=== PATIENT | male | born 1975 | race Caucasian/White ===

== ENCOUNTER 2016-10-04 18:17 | Emergency (ER) | payer OTHER ==
[2016-10-04] MEDS ORDERED: TYLENOL PO ONE (18:54)
--- NOTE | 2016-10-04 19:27 | XRay Report ---
FINAL REPORT PROCEDURE: XR CHEST 1V AP TECHNIQUE: Chest radiograph anteroposterior view. CPT 25245 HISTORY: upper respiratory infection COMPARISON: No prior studies are available for comparison. FINDINGS: The heart is normal in size. There is no focal infiltrate, pneumothorax or pleural effusion. Increased perihilar markings are seen that may be due to bronchitis. IMPRESSION: Increased perihilar markings are seen that may be due to bronchitis.
[2016-10-04] MEDS ORDERED: XYLOCAINE 1% MPF 5 mL INFILTRATI ONE (21:29)
[2016-10-04] MEDS ORDERED: ROCEPHIN IM ONE (21:29)
[2016-10-04] MEDS ORDERED: DECADRON IM ONE (21:29)
[2016-10-04 21:39] VITALS: BP 116/76
--- NOTE | 2016-10-04 21:53 | Emergency Department Report ---
- General Chief Complaint: Upper Respiratory Infection Stated Complaint: FEVER/BODY ACHES/DIZZINESS/COUGH Time Seen by Provider: 10/04/16 21:13 Source: patient Mode of arrival: Ambulatory Limitations: No Limitations - History of Present Illness Initial Comments: Patient comes into the ER today with complaints of generalized body aches, cough , sore throat that started yesterday. Patient denies any abdominal pain, diarrhea, vomiting. Patient states that his throat hurts and he coughs or even when he swallows. Patient denies any ear pain, nasal congestion. MD Complaint: fever, cough, sore throat - Related Data Previous Rx's Medication Instructions Recorded Last Taken Type HYDROcodone/APAP 10-325 [[place] 1 each PO Q6HR PRN #20 tablet 11/29/13 Unknown Rx 10-325 mg TAB] Amoxicillin 1,000 mg PO BID #40 capsule 10/04/16 Unknown Rx Allergies Allergy/AdvReac Type Severity Reaction Status Date / Time No Known Allergies Allergy Verified 10/04/16 18:53 ED Review of Systems ROS: Stated complaint: FEVER/BODY ACHES/DIZZINESS/COUGH Other details as noted in HPI Constitutional: chills, fever Eyes: denies: eye pain, eye discharge, vision change ENT: throat pain. denies: ear pain, dental pain, hearing loss, epistaxis, congestion Respiratory: cough. denies: shortness of breath, wheezing Cardiovascular: denies: chest pain, palpitations Endocrine: no symptoms reported Gastrointestinal: denies: abdominal pain, nausea, diarrhea Genitourinary: denies: urgency, dysuria Musculoskeletal: myalgia. denies: back pain, joint swelling, arthralgia Skin: denies: rash, lesions Neurological: denies: headache, weakness, paresthesias Psychiatric: denies: anxiety, depression Hematological/Lymphatic: denies: easy bleeding, easy bruising ED Past Medical Hx - Past Medical History Previous Medical History?: No - Surgical History Past Surgical History?: No Additional Surgical History: right knee surgery about 8 years ago - Social History Smoking Status: Never Smoker Substance Use Type: None - Medications Home Medications: Home Medications Medication Instructions Recorded Confirmed Last Taken Type HYDROcodone/APAP 10-325 [[place] 1 each PO Q6HR PRN #20 tablet 11/29/13 Unknown Rx 10-325 mg TAB] Amoxicillin 1,000 mg PO BID #40 capsule 10/04/16 Unknown Rx ED Physical Exam - General Limitations: No Limitations General appearance: alert, in no apparent distress - Head Head exam: Present: atraumatic, normocephalic - Eye Eye exam: Present: normal appearance, PERRL, EOMI Pupils: Present: normal accommodation - ENT ENT exam: Present: mucous membranes moist, TM's normal bilaterally, normal external ear exam, other (bilateral tonsillar erythematous with exudates) - Neck Neck exam: Present: normal inspection, full ROM, lymphadenopathy (bilateral tonsillar). Absent: tenderness - Respiratory Respiratory exam: Present: normal lung sounds bilaterally, rhonchi. Absent: respiratory distress, wheezes, decreased breath sounds - Cardiovascular Cardiovascular Exam: Present: regular rate, normal rhythm, normal heart sounds. Absent: systolic murmur, diastolic murmur, rubs, gallop - GI/Abdominal GI/Abdominal exam: Present: soft, normal bowel sounds. Absent: distended, tenderness - Rectal Rectal exam: Present: deferred - Extremities Exam Extremities exam: Present: normal inspection - Back Exam Back exam: Present: normal inspection - Neurological Exam Neurological exam: Present: alert, oriented X3 - Psychiatric Psychiatric exam: Present: normal affect, normal mood - Skin Skin exam: Present: warm, dry, intact, normal color. Absent: rash ED Course Vital Signs 10/04/16 10/04/16 18:43 21:36 Temperature 101.3 F H 99.4 F Pulse Rate 119 H 106 H Respiratory 20 18 Rate Blood Pressure 134/85 Blood Pressure 134/85 116/76 [Left] O2 Sat by Pulse 98 97 Oximetry ED Medical Decision Making - Radiology Data Radiology results: report reviewed Chest x-ray: Increased bronchial markings suggestive of bronchitis. No obvious infiltrates noted. - Medical Decision Making Patient is nontoxic and hemodynamically stable. Upon triage, patient checked in with reported fever as well as being tachycardic. Heart rate improved after controlling temperature with Tylenol here in the ER. Patient was given Rocephin 1 g IM as well as Decadron 10 mg IM to expedite recovery time. I will continue patient on outpatient antibiotic accordingly. Patient is in agreement treatment plan patient is stable for discharge. Critical care attestation.: If time is entered above; I have spent that time in minutes in the direct care of this critically ill patient, excluding procedure time. ED Disposition Clinical Impression: Exudative pharyngitis, Bronchitis, Fever Disposition: - TO HOME OR SELFCARE Is pt being admited?: No Does the pt Need Aspirin: No Condition: Good Instructions: Acute Bronchitis (ED), Strep Throat (ED), Fever in Adults (ED) Prescriptions: Amoxicillin 1,000 mg PO BID #40 capsule Referrals: PRIMARY CARE, [Primary Care Provider] - 3-5 Days Forms: Work/School Release Form(ED) Time of Disposition: 21:53 Print Language: TAMAZIGHT
== END 2016-10-04 22:08 | disposition home or self-care (01) ==
LOC: ED 18:17
DX: J40 Bronchitis, not specified as acute or chronic (principal)
CPT/HCPCS: 71010; 96372; 99283; J0696; J1100

== ENCOUNTER 2016-12-18 08:54 | Emergency (ER) | payer OTHER ==
[2016-12-18 09:05] VITALS: BP 124/77
--- NOTE | 2016-12-18 13:13 | Emergency Department Report ---
ED General Adult HPI - General Chief complaint: Sore Throat Stated complaint: FEVER,SORE THROAT Time Seen by Provider: 12/18/16 12:41 Source: patient Mode of arrival: Ambulatory Limitations: Language Barrier - History of Present Illness Initial comments: pt is a 41 y/o male who presents for sore throat, sinus congestion with fever x 2 days preceding URI , pt state sinus congestion causes dizziness intermittent that is relieved and exacerbated by position, there is no cp no sob, no weakness. there are no children in home or other sick contacts. Onset/Timin -: days(s) Location: head (head congestion with sore throat) Severity scale (0 -10): 5 Quality: burning, sharp Consistency: intermittent Improves with: none Worsens with: other (swallowing,lying down) Associated Symptoms: cough, fever/chills, malaise. denies: confusion, chest pain, diaphoresis, headaches, loss of appetite, nausea/vomiting, rash, seizure, shortness of breath, syncope, weakness Treatments Prior to Arrival: none - Related Data Previous Rx's Medication Instructions Recorded Last Taken Type HYDROcodone/APAP 10-325 [[address] 1 each PO Q6HR PRN #20 tablet 11/29/13 Unknown Rx 10-325 mg TAB] Amoxicillin 1,000 mg PO BID #40 capsule 10/04/16 Unknown Rx Amoxicillin/K Clav Tab [Augmentin 1 tab PO Q12HR #20 tab 12/18/16 Unknown Rx 875 mg] Cetirizine HCl [ZyrTEC] 10 mg PO DAILY #30 bag 12/18/16 Unknown Rx Ibuprofen [Motrin 800 MG tab] 800 mg PO Q8HR PRN #30 tablet 12/18/16 Unknown Rx Oxymetazoline 0.05% [Afrin] 1 spray NS BID #1 bottle 12/18/16 Unknown Rx Allergies Allergy/AdvReac Type Severity Reaction Status Date / Time No Known Allergies Allergy Verified 12/18/16 09:05 ED Review of Systems ROS: Stated complaint: FEVER,SORE THROAT Other details as noted in HPI Constitutional: chills, fever, malaise Eyes: denies: eye pain, eye discharge, vision change ENT: ear pain, throat pain, congestion Respiratory: cough. denies: shortness of breath, SOB with exertion, wheezing Cardiovascular: denies: chest pain, palpitations Endocrine: no symptoms reported Gastrointestinal: denies: abdominal pain, nausea, diarrhea Genitourinary: denies: urgency, dysuria Musculoskeletal: denies: back pain, joint swelling, arthralgia Skin: denies: rash, lesions Neurological: denies: headache, weakness, numbness, paresthesias, confusion, abnormal gait, vertigo Psychiatric: denies: anxiety, depression Hematological/Lymphatic: denies: easy bleeding, easy bruising ED Past Medical Hx - Past Medical History Previous Medical History?: No - Surgical History Past Surgical History?: Yes Additional Surgical History: right knee surgery about 8 years ago - Social History Smoking Status: Never Smoker Substance Use Type: Alcohol - Medications Home Medications: Home Medications Medication Instructions Recorded Confirmed Last Taken Type HYDROcodone/APAP 10-325 [[address] 1 each PO Q6HR PRN #20 tablet 11/29/13 Unknown Rx 10-325 mg TAB] Amoxicillin 1,000 mg PO BID #40 capsule 10/04/16 Unknown Rx Amoxicillin/K Clav Tab [Augmentin 1 tab PO Q12HR #20 tab 12/18/16 Unknown Rx 875 mg] Cetirizine HCl [ZyrTEC] 10 mg PO DAILY #30 bag 12/18/16 Unknown Rx Ibuprofen [Motrin 800 MG tab] 800 mg PO Q8HR PRN #30 tablet 12/18/16 Unknown Rx Oxymetazoline 0.05% [Afrin] 1 spray NS BID #1 bottle 12/18/16 Unknown Rx ED Physical Exam - General Limitations: Language Barrier General appearance: alert, in no apparent distress - Head Head exam: Present: atraumatic, normocephalic, normal inspection - Eye Eye exam: Present: normal appearance, PERRL, EOMI Pupils: Present: normal accommodation - ENT ENT exam: Present: normal external ear exam - Expanded ENT Exam Expanded TM/Canal exam: Erythema: Right TM, Left TM, Effusion: Left TM, Canal Tenderness : Right TM, Left TM Mouth exam: Present: normal external inspection, tongue normal. Absent: drooling, trismus, muffled voice, tongue elevation Teeth exam: Present: normal inspection Throat exam: Positive: tonsillar erythema, other (sinus: bilat Maxillary sinus pain no swelling no erythema ). Negative: tonsillomegaly, tonsillar exudate, R peritonsillar mass, L peritonsillar mass - Neck Neck exam: Present: normal inspection, full ROM. Absent: tenderness, lymphadenopathy, thyromegaly - Respiratory Respiratory exam: Absent: wheezes, stridor, chest wall tenderness - Cardiovascular Cardiovascular Exam: Present: regular rate, normal rhythm. Absent: systolic murmur, diastolic murmur, rubs, gallop - GI/Abdominal GI/Abdominal exam: Present: soft, normal bowel sounds - Rectal Rectal exam: Present: deferred - exam: Present: normal inspection - Extremities Exam Extremities exam: Present: normal inspection, full ROM, normal capillary refill. Absent: tenderness, pedal edema, joint swelling, calf tenderness - Back Exam Back exam: Present: normal inspection, full ROM. Absent: tenderness, muscle spasm, paraspinal tenderness, vertebral tenderness, rash noted - Neurological Exam Neurological exam: Present: alert, oriented X3, CN II-XII intact, normal gait, reflexes normal. Absent: motor sensory deficit - Psychiatric Psychiatric exam: Present: normal affect, normal mood - Skin Skin exam: Present: warm, dry, intact, normal color. Absent: rash ED Course Vital Signs 12/18/16 09:00 Temperature 98.6 F Pulse Rate 71 Respiratory 16 Rate Blood Pressure 124/77 O2 Sat by Pulse 99 Oximetry ED Medical Decision Making - Medical Decision Making pt is a 41 y/o male appears well nontoxic wellhydrated well nourished who presents for head and sinus congestion with ear pain and cough x 3 days symptoms started as uri and progress to ear and sinus pain with fever for past 2 days symptoms are worse at night and when lying down causing intermittent dizziness there is no cp or sob no headache or light headedness, exam: bilater tm erythema left effusion pain with movement nose: no obstruction clear post nasal drip, pharnx: moderate erythema with red lesions mild white exudate, no tonsilar abscess uvula midline no stridor , lungs clear bilat no wheezing pt state dx with aom 2 months ago , will tx for sinusitis, with augment po x 10 days pt will follow up Dr. Solzi [phone] Critical care attestation.: If time is entered above; I have spent that time in minutes in the direct care of this critically ill patient, excluding procedure time. ED Disposition Clinical Impression: Sinusitis Qualifiers: Sinusitis location: maxillary Chronicity: acute Recurrence: non-recurrent Qualified Code(s): J01.00 - Acute maxillary sinusitis, unspecified Disposition: DC-01 TO HOME OR SELFCARE Is pt being admited?: No Does the pt Need Aspirin: No Condition: Good Instructions: Amoxicillin/Clavulanate Potassium (By mouth), Sinusitis (ED) Prescriptions: Amoxicillin/K Clav Tab [Augmentin 875 mg] 1 tab PO Q12HR #20 tab Cetirizine HCl [ZyrTEC] 10 mg PO DAILY #30 bag Ibuprofen [Motrin 800 MG tab] 800 mg PO Q8HR PRN #30 tablet PRN Reason: pain / fever Oxymetazoline 0.05% [Afrin] 1 spray NS BID #1 bottle Referrals: PRIMARY CARE, [Primary Care Provider] - 3-5 Days OSWALDO SOLIZ MD [Staff Physician] - 3-5 Days Forms: Work/School Release Form(ED) Time of Disposition: 13:29
== END 2016-12-18 13:51 | disposition home or self-care (01) ==
LOC: ED 08:54
DX: J01.00 Acute maxillary sinusitis, unspecified (principal)
CPT/HCPCS: 99282